=== PATIENT | female | born 1955 | race Caucasian/White ===

== ENCOUNTER → 2017-08-06 | Outpatient (CLI) | payer MEDICAID ==
[~2017-08-06] MED LIST: IOPAMIDOL (ISOVUE-300) 100 ML BTL ONE
== END ==
LOC: CIMAGING 10:22
PROVIDERS: ATTEND Physician Assistant
DX: K80.20 Calculus of gallbladder without cholecystitis without obstruction (principal); N20.0 Calculus of kidney
CPT/HCPCS: 74177-PO; Q9967

== ENCOUNTER → 2017-08-29 | Outpatient (CLI) | payer MEDICAID ==
[~2017-08-29] MED LIST changes: +GADOBUTROL 10 ML VIAL IVP ONE; -IOPAMIDOL (ISOVUE-300) 100 ML BTL ONE
== END ==
LOC: FIMAGING 08:33
PROVIDERS: ATTEND Physician Assistant
DX: R10.13 Epigastric pain (principal); R93.2 Abnormal findings on diagnostic imaging of liver and biliary tract; K80.20 Calculus of gallbladder without cholecystitis without obstruction; D18.03 Hemangioma of intra-abdominal structures
CPT/HCPCS: A9585

== ENCOUNTER 2017-09-01 10:53 | Day surgery (SDC) | payer MEDICAID ==
[~2017-09-01 10:53] MED LIST changes: -GADOBUTROL 10 ML VIAL IVP ONE; +cefOXitin SODIUM 2 GM in D5W 100 ML IV ONE
[2017-09-01] MEDS ORDERED: LIDOCAINE 1% 2 ML INJ ID PRN (11:13)
[2017-09-01] MEDS ORDERED: LR 1,000 ML IV ONE (11:13)
[2017-09-01 11:32] VITALS: PULSE 72
[2017-09-01] MEDS ORDERED: HYDROmorphONE/DILAUDID 1 MG/ML INJ IVP ONE (12:39)
[2017-09-01] MEDS ORDERED: HYDROmorphONE/DILAUDID 1 MG/ML INJ ONE ×2 (12:49→16:40)
--- NOTE | 2017-09-01 13:13 | PDANEPAE ---
ANE History of Present Illness 61 year old female w/ PMHx of chronic pain presents for lap brenna. ANE Past Medical History - Cardiovascular History Hx Hypertension: No Hx Arrhythmias: No Hx Chest Pain: No Hx Coronary Artery / Peripheral Vascular Disease: No Hx CHF / Valvular Disease: No Hx Palpitations: No - Pulmonary History Hx COPD: No Hx Asthma/Reactive Airway Disease: No Hx Recent Upper Respiratory Infection: No Hx Oxygen in Use at Home: No Hx Sleep Apnea: No Sleep Apnea Screening Result - Last Documented: Negative - Neurologic History Hx Cerebrovascular Accident: No Hx Seizures: No Hx Dementia: No - Endocrine History Hx Diabetes: No Obesity: no - Renal History Hx Renal Disorders: Yes Renal History Comment: kidney stone to right kidney - Liver History Hx Hepatic Disorders: No - Neurological & Psychiatric Hx Hx Neurological and Psychiatric Disorders: No - Cancer History Hx Cancer: No Cancer History Comment: Necrotic lymph node in right axilla - Congenital Disorder History Hx Congenital Disorders: No - GI History GERD: mild Hx Gastrointestinal Disorders: Yes Gastrointestinal History Comment: gerd,reflux - Other Health History Other Health History: none - Chronic Pain History Chronic Pain: Yes (NECK - takes oxycodone 50mg per day.) - Surgical History Prior Surgeries: none ANE Review of Systems Review of systems is: negative Review of Systems: - Exercise capacity Exercise capacity: >=4 METS METS (RN): 5 METS ANE Patient History - Allergies Allergies/Adverse Reactions: No Known Allergies Allergy (Verified 08/29/17 12:52) - Home Medications Home medications: home medication list seen and reviewed Home Medications: ALPRAZolam [Xanax] 10/28/14 [Last Taken 08/31/17] Famvir 125 MG (RX) 10/28/14 [Last Taken Unknown] Hydrocodone/APAP 5/325 [[place] 5/325] 08/29/17 [Last Taken 08/31/17] - NPO status NPO Status: no food or drink >8 hours NPO Since - Liquids (Date): 08/31/17 NPO Since - Liquids (Time): 23:45 NPO Since - Solids (Date): 08/31/17 NPO Since - Solids (Time): 22:45 - Anes Hx Anes Hx: no prior problems - Smoking Hx Smoking Status: Never smoked Marijuana use: No - Alcohol Use Alcohol Use: None - Family Anes Hx Family Anes Hx: neg - N/A Family Hx Anesthesia Complications: none ANE Labs/Vital Signs - Vital Signs Vital Signs: reviewed preoperatively; see RN documention for details Blood Pressure: 121/83 Heart Rate: 72 Respiratory Rate: 16 O2 Sat (%): 96 Height: 160.02 cm Weight: 52.617 kg ANE Physical Exam - Airway Neck exam: FROM Mallampati Score: Class 2 Mouth exam: normal dental/mouth exam - Pulmonary Pulmonary: no respiratory distress - Cardiovascular Cardiovascular: regular rate and rhythym - ASA Status ASA Status: II ANE Anesthesia Plan Anesthesia Plan: general endotracheal anesthesia Total IV Anesthesia: No
[2017-09-01] MEDS ORDERED: MIDAZOLAM 2 MG/2 ML VIAL IVP ONE (14:44)
[2017-09-01] MEDS ORDERED: IOPAMIDOL (ISOVUE-M 200) 20 ML VIAL ONE (14:46)
[2017-09-01] MEDS ORDERED: HEPARIN 1000 UNIT/1 ML MDV ONE (14:46)
[2017-09-01] MEDS ORDERED: BUPIVACAINE 0.5% 30 ML SDV ONE (14:46)
[2017-09-01] MEDS ORDERED: IOPAMIDOL (ISOVUE-M 300) 15 ML VIAL ONE (14:46)
[2017-09-01] MEDS ORDERED: CEFAZOLIN 1 GM/DEXTROSE/50 ML BAG IV ONE (14:47)
[2017-09-01] MEDS ORDERED: PROPOFOL 200 MG/20 ML VIAL ONE ×2 (14:58→15:50)
[2017-09-01] MEDS ORDERED: fentaNYL 100 MCG/2 ML INJ ONE ×4 (14:58→17:09)
[2017-09-01] MEDS ORDERED: LIDOCAINE 2% 5 ML SDV ONE (15:03)
[2017-09-01] MEDS ORDERED: ONDANSETRON 4 MG/2 ML VIAL ONE (15:03)
[2017-09-01] MEDS ORDERED: DEXAMETHASONE 4 MG/ML VIAL ONE (15:03)
[2017-09-01] MEDS ORDERED: ROCURONIUM 50 MG/5 ML VIAL ONE (15:03)
[2017-09-01] MEDS ORDERED: NALOXONE HCL 0.4 MG/ML INJ IVP PRN (15:16)
[2017-09-01] MEDS ORDERED: LR 500 ML IV PRN (15:16)
[2017-09-01] MEDS ORDERED: ONDANSETRON 4 MG/2 ML VIAL IVP PRN (15:16)
[2017-09-01] MEDS ORDERED: OXYCODONE/APAP 5/325 TAB PO PRN (15:16)
[2017-09-01] MEDS ORDERED: PHENYLEPHRINE HCL 100 MCG/ML SYR IVP PRN (15:16)
[2017-09-01] MEDS ORDERED: SUGAMMADEX SODIUM 200 MG/2 ML VIAL IVP ONE (16:20)
[2017-09-01] MEDS: fentaNYL 100 MCG/2 ML INJ IVP PRN ×7 (16:43→17:46)
[2017-09-01] MEDS: HYDROmorphONE/DILAUDID 1 MG/ML INJ IVP PRN ×4 (16:43→17:13)
[2017-09-01 17:03] VITALS: TEMP 97.5
--- NOTE | 2017-09-01 17:34 | POSTOPPROG ---
Post Op Note Date of Operation: 09/01/17 Surgeon: Bill Milton Anesthesiologist: MIRIAM Anesthesia: GET(General Endotracheal) Pre-op Diagnosis: CHOLELITHIASIS AND COMMON DUCT DILATATION Post-op Diagnosis: SAME Indication: PAIN Procedure: LAP CHOLY WITH OPERATIVE CHOLANGIOGRAPHY Findings: LARGE STONES SMALL CYSTIC DUCT LARGE COMMON DUCT BUT FREE FLOW INTO THE DUO Inf/Abcess present in the surg proc area at time of surgery?: No Depth: Organ Space EBL: Minimal Complications: NONE Specimen(s): GALLBLADDER
[2017-09-01] MEDS ORDERED: OXYCODONE/APAP 5/325 TAB ONE (17:39)
--- NOTE | 2017-09-01 18:05 | POSTANESTH ---
Post Anesthetic Evaluation Cardiovascular Status: Normal, Stable, Similar to Pre-Op Cond Respiratory Status: Normal, Stable, Similar to Pre-op Cond. Level of Consciousness/Mental Status: Can Participate in Eval, Alert and Oriented Pain Control: Adequate, Prn Tx Ordered Nausea/Vomiting Control: Adequate, Prn Tx Ordered Complications Possibly Related to Anesthesia: None Noted
[2017-09-01 18:40] VITALS: RESP 16
[2017-09-01 19:39] VITALS: BP 126/77
[2017-09-01 19:48] VITALS: O2SAT 93
--- NOTE | 2017-09-02 20:18 | GOP ---
[f rep st] OPERATIVE REPORT DATE OF OPERATION: 09/01/2017 SURGEON: Bill Milton MD PILATES COORDINATOR: Amanda Christianson P.A.-C. ANESTHESIOLOGIST: Jamie Doty M.D. PREOPERATIVE DIAGNOSIS: Symptomatic cholelithiasis and cholecystitis as well as a dilated common bile duct. POSTOPERATIVE DIAGNOSIS: Symptomatic cholelithiasis and cholecystitis as well as a dilated common bile duct. PROCEDURE PERFORMED: Laparoscopic cholecystectomy. FINDINGS: The patient was found to have multiple stones in the gallbladder. She has a large common duct which tapered down. There was free flow into the duodenum but no definite filling defects. DESCRIPTION OF PROCEDURE: The patient was taken to the operating room where she received satisfactory general endotracheal anesthesia by Dr. Doty. She was placed in the supine position, prepped and draped in the usual sterile fashion. A periumbilical incision was made. A Veress needle was inserted. Pneumoperitoneum was established. A trocar was introduced. A laparoscope introduced. Good visualization was obtained. Three other trocars were placed in the upper abdomen under direct vision. The gallbladder was visualized. It was distended, mildly inflamed. It was elevated up. Adhesions to the gallbladder were taken down with electrocautery, exposing the entire gallbladder. The cystic triangle was carefully dissected free. The cystic artery and cystic duct were exposed. A good clear view was obtained. The cystic artery was multiply hemoclipped and divided. The cystic duct was hemoclipped proximally. A cholangiogram catheter was brought in through a separate stab incision. Incision was made in the cystic duct and the catheter was introduced. Using the C-arm, operative cholangiography was done showing a largely dilated common duct but no filling defects and free flow into the duodenum. The cholangiogram catheter was removed. The cystic duct was multiply hemoclipped and divided. Peritoneum of the gallbladder was incised. The gallbladder was dissected free in the bed and hepatic fossa and extracted through the upper midline port site and removed. Hemostasis was assured. Trocars were then removed under direct vision. Trocar sites were closed with 0 Vicryl for the fascia, 4-O Monocryl subcuticular stitch for the skin. All layers were infiltrated with 0.5% Marcaine. Blood loss was negligible. She was taken to the recovery room in good condition. /[id number]/MODL MTDD
== END 2017-09-01 19:47 | disposition home or self-care (01) ==
LOC: FSGY 10:53
PROVIDERS: ATTEND Surgery
PROC: 0FT44ZZ Resection of Gallbladder, Percutaneous Endoscopic Approach (ICD-10-PCS; principal; 2017-09-01 12:30)
DX: K80.10 Calculus of gallbladder with chronic cholecystitis without obstruction (principal); K83.8 Other specified diseases of biliary tract
CPT/HCPCS: J0690; J0694; J1100; J1170; J2250; J2405; J2704; J3010; Q9966; Q9967

== ENCOUNTER → 2017-10-09 | Outpatient (CLI) | payer MEDICAID | LOC: FIMAGING 14:51 | PROVIDERS: ATTEND Physician Assistant Medical | DX: N63.32 Unspecified lump in axillary tail of the left breast (principal) ==

== ENCOUNTER → 2018-06-02 | Outpatient (CLI) | payer MEDICAID ==
[~2018-06-02] MED LIST changes: +IOPAMIDOL (ISOVUE-300) 100 ML BTL ONE; -cefOXitin SODIUM 2 GM in D5W 100 ML IV ONE
== END ==
LOC: FIMAGING 14:21
PROVIDERS: ATTEND Physician Assistant
DX: R93.2 Abnormal findings on diagnostic imaging of liver and biliary tract (principal)
CPT/HCPCS: Q9967